=== PATIENT | female | born 1980 | race Caucasian/White ===

== ENCOUNTER 2020-02-22 17:49 | Emergency (ER) | payer BC, MEDICAID, OTHER ==
[~2020-02-22] VITALS: Ht 162.6 cm; Wt 111.4 kg
[2020-02-22] MEDS ORDERED: LEVO50TA5 PO (17:58)
[2020-02-22] MEDS: ACETAMINOPHEN 500 MG TAB PO ONE (18:10)
[2020-02-22] MEDS: IBUPROFEN 800 MG TAB PO ONE (18:10)
--- NOTE | 2020-02-22 18:40 | REPVR ---
PROCEDURE INFORMATION: Exam: XR Right Ankle Exam date and time: 02/22/2020 6:26 PM Age: 39 years old Clinical indication: Pain and injury or trauma; Fall; Initial encounter; Sprain or strain and swelling (edema); Ankle; Right; Additional info: Fall with pain and swelling TECHNIQUE: Imaging protocol: XR Right ankle. Views: 3 or more views. COMPARISON: No relevant prior studies available. FINDINGS: Bones/joints: Normal bony alignment. No acute fracture. No asymmetric ankle mortise widening. Fifth metatarsal base is intact. No osteochondral lesion of the talar dome. No evidence of tarsal coalition. Well-defined plantar calcaneal spur, at the plantar aponeurosis insertion. Joint spaces are well maintained. Soft tissues: No focal soft tissue swelling. IMPRESSION: 1. Unremarkable radiographic series of the ankle. 2. Incidental well-defined plantar calcaneal enthesophyte which can be associated with plantar aponeurosis symptoms Electronically signed by: Bassam Garcia On 02/22/2020 18:40:28 PM
--- NOTE | 2020-02-22 18:41 | REPVR ---
PROCEDURE INFORMATION: Exam: XR Right Foot Complete Exam date and time: 02/22/2020 6:26 PM Age: 39 years old Clinical indication: Pain and injury or trauma; Fall; Initial encounter; Sprain or strain and swelling (edema); Foot; Right; Additional info: Fall with pain and swelling TECHNIQUE: Imaging protocol: XR Right foot. Views: 3 or more views. COMPARISON: No relevant prior studies available. FINDINGS: Bones/joints: Normal hindfoot alignment. No evidence of tarsal coalition. No acute fracture or stress fracture. Lisfranc and midfoot alignment is normal. Joint spaces are well-maintained for age. Well-defined plantar calcaneal spur, at the plantar aponeurosis insertion. Soft tissues: No focal soft tissue process. IMPRESSION: 1. No acute fracture, osseous malalignment or radiographic evidence of significant soft tissue injury. 2. Well-defined plantar calcaneal enthesophyte which can be associated with plantar aponeurosis symptoms Electronically signed by: Bassam Garcia On 02/22/2020 18:41:47 PM
[2020-02-22 19:16] VITALS: BP 131/98
== END 2020-02-22 19:19 | disposition home or self-care (01) ==
LOC: M ED 17:49
DX: S93.401A Sprain of unspecified ligament of right ankle, initial encounter (principal); X50.1XXA Overexertion from prolonged static or awkward postures, initial encounter; Y92.830 Public park as the place of occurrence of the external cause; Y93.01 Activity, walking, marching and hiking; Y99.8 Other external cause status